=== PATIENT | female | born 1955 | race Caucasian/White ===

== ENCOUNTER 2021-01-20 10:11 | Outpatient (REF) | payer OTHER, SELFPAY ==
--- NOTE | ~2021-01-20 | MM_ITS ---
EXAMINATION: MM SCREENING DIGITAL BREAST TOMOSYNTHESIS, BILATERAL CLINICAL INFORMATION: Screening. Asymptomatic. The lifetime risk of breast cancer based on the Tyrer-Cuzick Model is 5.4%. COMPARISON: Mammography: December 12, 2018 and studies dating back to 04/12/2011. TECHNIQUE: Digital breast tomosynthesis is performed in both the craniocaudal and mediolateral oblique views along with computer-aided detection (CAD). Synthesized 2D images are generated from the tomosynthesis. FINDINGS: The breasts are heterogeneously dense, which may obscure small masses (ACR BI-RADS breast composition Category c). There is a stable parenchymal pattern seen within the left breast with no new abnormal dominant masses or new suspicious grouping of microcalcifications. Within the anterior superior aspect of the right breast the grouping of calcifications has increased in number and there is question of an underlying ill-defined density on craniocaudal view. Recommend spot magnification view of the calcifications. MM/MM tomosynthesis screening BI IMPRESSION: Right breast calcifications for further evaluation as described. ASSESSMENT: BI-RADS 0: Incomplete - Need Additional Imaging Evaluation. RECOMMENDATION: 1. Additional views of the right breast. 2. Targeted ultrasound if warranted after review of the additional views. 3. Radiology department staff will contact the patient for additional imaging. This patient's information was entered into a reminder system with a target due date for their next mammogram.
== END 2021-01-20 10:12 | disposition home or self-care (01) ==
LOC: HO.MAMMO 10:11
PROVIDERS: Visit Provider Internal Medicine
DX: Z12.31 Encounter for screening mammogram for malignant neoplasm of breast (principal)
CPT/HCPCS: 77063; 77067

== ENCOUNTER 2021-02-02 09:48 | Outpatient (REF) | payer OTHER, SELFPAY ==
--- NOTE | ~2021-02-02 | MM_ITS ---
EXAMINATION: MM DIAGNOSTIC DIGITAL MAMMOGRAPHY, RIGHT CLINICAL INFORMATION: Recall from screening for increased calcifications anterior upper right breast. COMPARISON: Mammography: 01/20/2021, 12/12/2018 TECHNIQUE: Digital mammography is performed in the following views: Magnification CC, magnification ML FINDINGS: There are scattered areas of fibroglandular density (ACR BI-RADS breast composition Category b). There are multiple fine calcifications anterior 12:30 o'clock position. These slightly vary in size and attenuation and represent change from prior mammography 2018. Stereotactic sampling is recommended. Results are discussed with the patient at time of visit. Stereotactic sampling is recommended. MM/MM added views RT IMPRESSION: Suspicious calcifications anterior 12:30 o'clock position right breast. ASSESSMENT: BI-RADS 4: Suspicious RECOMMENDATION: Stereotactic sampling right breast calcifications.
== END 2021-02-02 09:49 | disposition home or self-care (01) ==
LOC: HO.MAMMO 09:48
PROVIDERS: PCP Internal Medicine; Visit Provider Internal Medicine
DX: R92.1 Mammographic calcification found on diagnostic imaging of breast (principal)
CPT/HCPCS: 77065

== ENCOUNTER → 2021-02-16 08:22 | Outpatient (BNVA) | payer OTHER, SELFPAY | PROVIDERS: PCP Internal Medicine; Visit Provider Surgery | DX: R92.8 Other abnormal and inconclusive findings on diagnostic imaging of breast (principal) | CPT/HCPCS: 99202 ==

== ENCOUNTER 2021-02-18 07:43 | Outpatient (REF) | payer OTHER, SELFPAY ==
--- NOTE | ~2021-02-18 | MM_ITS ---
EXAMINATION: STEREOTACTIC TOMOSYNTHESIS-GUIDED VACUUM-ASSISTED BREAST BIOPSY, RIGHT SPECIMEN RADIOGRAPH, RIGHT POST PROCEDURE DIGITAL MAMMOGRAM, RIGHT CLINICAL INFORMATION: Indeterminate grouping of calcifications superior right breast. COMPARISON: February 02, 2021 and studies dating back to September 25, 2016. TECHNIQUE/PROCEDURE: Informed consent was obtained from the patient after discussion of the benefits, risks, and alternatives to biopsy today. Patient appeared to understand. Gave opportunity for questions. Patient signed consent form. BIOPSY TABLE: [employer] Affirm Prone Biopsy System. LESION: Calcifications. LOCAL ANESTHESIA: 10 mL 1% lidocaine; 10 mL 1% lidocaine with epinephrine. DERMATOTOMY: Single skin beck dermatotomy performed. NEEDLE: [employer] Eviva 9-gauge vacuum assisted core biopsy device. APPROACH: Superior, craniocaudal. TARGETING: Digital breast tomosynthesis used for targeting. CORES: 15. CLIP: T shaped. SPECIMEN RADIOGRAPH: Specimen radiograph is taken in separate room using digital mammography. The index calcifications are in the excised cores. POST PROCEDURE UNILATERAL DIGITAL MAMMOGRAM: The post biopsy mammogram is performed in separate room using separate digital mammography equipment from the biopsy procedure. Craniocaudal and 90 degree mediolateral views are obtained. There are scattered areas of fibroglandular density (breast composition category: b). The clip marker is in position. The calcifications are markedly decreased at the biopsy site. Within the sample is also noted be calcified arterial wall. There is a moderately sized hematoma present at the biopsy site. Hemostasis was obtained with manual compression. The patient tolerated the procedure well. No immediate complications. Home instructions reviewed with the patient. Final pathology results are pending. MM/MM stereotactic biopsy RT IMPRESSION: 1. Digital tomosynthesis-guided core biopsy right breast with clip placement. 2. Specimen radiograph taken and post procedure mammogram. There is satisfactory positioning of the biopsy clip. 3. Final pathology results pending. An addendum report will be issued.
== END 2021-02-18 07:44 | disposition home or self-care (01) ==
LOC: HO.MAMMO 07:43
PROVIDERS: Visit Provider Surgery
DX: C50.911 Malignant neoplasm of unspecified site of right female breast (principal); Z17.0 Estrogen receptor positive status [ER+]
CPT/HCPCS: 19081; 88305; 88341; 88342; 88360

== ENCOUNTER → 2021-02-23 09:39 | Outpatient (BNVA) | payer OTHER, SELFPAY | PROVIDERS: PCP Internal Medicine; Visit Provider Surgery ==

== ENCOUNTER → 2021-03-04 14:55 | Outpatient (BNVA) | payer OTHER, SELFPAY | PROVIDERS: PCP Internal Medicine; Visit Provider Surgery ==

== ENCOUNTER → 2021-03-09 08:56 | Outpatient (BNVA) | payer OTHER, SELFPAY | PROVIDERS: PCP Internal Medicine; Visit Provider Surgery | DX: C50.911 Malignant neoplasm of unspecified site of right female breast (principal); Z17.0 Estrogen receptor positive status [ER+] | CPT/HCPCS: 99212 ==

== ENCOUNTER → 2021-03-18 09:02 | Outpatient (BNV) | payer MEDICARE, OTHER, SELFPAY | PROVIDERS: PCP Internal Medicine; Referring Provider Surgery; Visit Provider Internal Medicine Medical Oncology | DX: Z85.3 Personal history of malignant neoplasm of breast (principal); Z90.13 Acquired absence of bilateral breasts and nipples; Z17.0 Estrogen receptor positive status [ER+]; M81.0 Age-related osteoporosis without current pathological fracture | CPT/HCPCS: 99204; 99213; 99214 ==

== ENCOUNTER → 2021-03-19 14:00 | Outpatient (BNVA) | payer OTHER, SELFPAY | PROVIDERS: PCP Internal Medicine; Visit Provider Urology | DX: Z13.89 Encounter for screening for other disorder (principal) | CPT/HCPCS: 99212 ==

== ENCOUNTER 2021-03-24 07:08 | Day surgery (SDC) | payer OTHER, SELFPAY ==
[2021-03-17 10:19] VITALS: BMI 24.9
--- NOTE | 2021-03-20 08:21 | P.CONAN_ITS ---
Documented by User: Zee Hodgeney 03/20/21 08:23 HPI - Anesthesia Eval Consult details Narrative: 65yo F for Right Axillary Sentinal Node Biopsy, Bilateral Mastectomy Simple PMFSH Active Problems Active Problems: All Active Problems (Updated 03/19/21 @ 14:57 by Shekhar Sne MD) Nephrolithiasis (Acute) Breast cancer, right (Acute) Breast cancer (Acute) Abnormal mammogram of right breast (Acute) Right elbow pain (Acute) Renal calculi (Acute) Polyarthralgia (Acute) GERD (gastroesophageal reflux disease) (Acute) Past Medical History Medical History Abnormal mammogram of right breast Arthritis of both knees Breast cancer COVID-19 vaccine administered GERD (gastroesophageal reflux disease) Polyarthralgia Renal calculi Right elbow pain Family History Family History Father No problems noted. Mother Diabetes Hypertension Surgical History Surgical History H/O skin graft H/O tubal ligation History of cholecystectomy Hx of colonoscopy Social History Social History Are you a primary hospice spiritual care coordinator to a significant other at home: No Do you presently have visiting nurse or other home services: No Alcohol intake: former Patient Tobacco Use Status: Never used Tobacco Use of substances other than those prescribed or required for medical reasons: No Have you been hit, kicked, punched, or otherwise hurt by someone within the past year? If so, by whom?: No Are you DNR?: No Advance Directives: No Advance Directives Information Provided: No Advance Directives on File: No Recently lost weight without trying: No Eating poorly because of decreased appetite: No Nutrition Risks: No Nutritional Risk Patient : No Meds Allergies Allergy/AdvReac Type Severity Reaction Status Date / Time No Known Allergies Allergy Verified 03/19/21 14:29 Home Medications Medication Instructions Recorded Confirmed Last Taken Type omeprazole 40 mg capsule,delayed 40 mg PO DAILY 01/15/21 03/18/21 Unknown History release multivitamin 1 tab PO DAILY 03/18/21 03/18/21 Unknown History Exam Exam Date and Time: March 20, 202121 Height,Weight and Vital Signs: Height 5 ft 1 in Weight 59.874 kg Pertinent Lab Results Pertinent Lab Results: Laboratory Tests 03/18/21 03/18/21 09:41 09:41 WBC 5.0 Hgb 12.7 Hct 38.3 Plt Count 172 Sodium 141 Potassium 4.2 Chloride 104 Carbon Dioxide 30 H BUN 9 Creatinine 0.70 Assessment and Plan Assessment Anesthesia Assessment: Chart Reviewed Documented by User: Gemma Lemus 03/24/21 10:10 [facility] Past Medical History Medical History Abnormal mammogram of right breast Arthritis of both knees Breast cancer COVID-19 vaccine administered GERD (gastroesophageal reflux disease) Polyarthralgia Renal calculi Right elbow pain Family History Family History Father No problems noted. Mother Diabetes Hypertension Surgical History Surgical History H/O skin graft H/O tubal ligation History of cholecystectomy Hx of colonoscopy Social History Social History Are you a primary hospice spiritual care coordinator to a significant other at home: No Do you presently have visiting nurse or other home services: No Alcohol intake: former Patient Tobacco Use Status: Never used Tobacco Use of substances other than those prescribed or required for medical reasons: No Have you been hit, kicked, punched, or otherwise hurt by someone within the past year? If so, by whom?: No Are you DNR?: No Advance Directives: No Advance Directives Information Provided: No Advance Directives on File: No Recently lost weight without trying: No Eating poorly because of decreased appetite: No Nutrition Risks: No Nutritional Risk Patient : No Meds Allergies Allergy/AdvReac Type Severity Reaction Status Date / Time No Known Allergies Allergy Verified 03/19/21 14:29 Home Medications Medication Instructions Recorded Confirmed Last Taken Type omeprazole 40 mg capsule,delayed 40 mg PO DAILY 01/15/21 03/18/21 Unknown History release multivitamin 1 tab PO DAILY 03/18/21 03/18/21 Unknown History Exam Airway Mallampati Class: II TM Dist: >3cm Neck ROM: Full Assessment and Plan Assessment Anesthesia Assessment: Anesthesia Plan Discussed and Chart Reviewed Final Anesthetic Review NPO: Yes ASA Class: II Final Preanesthetic Review: No Changes in Pt Med Stat, Meds/Allgs Chart Reviewed, Consent Obtained/Reviewed and Anes Risks/Benef Reviewed Patient Risk: Low Procedure Risk: Low Assessment/Block/Sedation in SS: Assess/Block/Sedation-SS Anesthetic Plan Anesthetic Plan: GA Disposition: Standard PACU
[2021-03-24] VITALS (12 sets, daily range): BP systolic 134–161; BP diastolic 52–70; PULSE 63–102; RESP 8–18; TEMP 36.2–36.9; O2SAT 94–100
--- NOTE | ~2021-03-24 | NM_ITS ---
PROCEDURE: NM LYMPH SCINTIGRAPHY CLINICAL INFORMATION: Right breast lesion. For mastectomy. COMPARISON: None TECHNIQUE: Following explaining right breast lymphoscintigraphy procedure, benefits and risk, a written consent was obtained. The right breast areola was initially numbed with 2% lidocaine jelly. This was cleaned approximately 45 minutes after application in a sterile fashion. 0.5 uCi of 99m technetium Lymphoseek divided in 4 equal doses injected in 4 quadrants around the areola. Complete hemostasis achieved. Simple massage was performed by the patient and the nuclear tech. Images were obtained approximately 20 minutes later. Patient tolerated the procedure extremely well. FINDINGS: There are areas of 4 corner isotope activity around the right breast areola. There is a solitary sentinel node in the right anterior axilla. No activity seen along the internal mammary chain. NM/NM sentinel node w imaging IMPRESSION: Solitary sentinel node seen in the right anterior axilla on right breast lymphoscintigraphy.
[2021-03-24 07:32] LABS: COVID-19 Test Negative (Negative); IDNOW Serial# 9DD0AD1C
[2021-03-24] MEDS: Lactated Ringers 1,000 ML 100 ML IVCONT (08:03)
--- NOTE | 2021-03-24 10:37 | MHC.SHP ---
Pre-Procedural Eval Section B Chief Complaint: s/p b/l mastectomy Allergies: Allergies Allergy/AdvReac Type Severity Reaction Status Date / Time No Known Allergies Allergy Verified 03/19/21 14:29 Plan I have reviewed the history and physical and performed a pertinent physical examination on my patient. No changes have occurred unless specified.
--- NOTE | 2021-03-24 14:03 | PM.OP ---
Brief Operative Note Date of Service: 03/24/21 Pre-op diagnosis: right breast cancer Post-op diagnosis: same Procedure: bilateral total mastectomy with sentinel node biopsy of the right axilla Surgeon: Ronny Kimble MD Anesthesia: GLMA Was an Contact Centre Supervisor used for this Procedure?: Yes Contact Centre Supervisor: Agustin Patricio Estimated blood loss (mL): 75 Pathology: other (left and right breasts, sentinel node) Condition: stable Disposition: PACU
--- NOTE | 2021-03-24 14:05 | P.OP_ITS ---
Operative Note Operative Note Date of Service: 03/24/21 Narrative: Preop diagnosis: Invasive ductal carcinoma right breast Postop diagnosis: The same Procedure: Bilateral total mastectomy with sentinel node biopsy of the right breast Surgeon: Ronny Kimble MD 1st clinical trial assistant: Agustin Patricio MD The patient is a 65 year female with undergone ultrasound biopsy of right breast mass for calcifications noted on screening mammogram. This turned out to be invasive ductal carcinoma. I therefore explained to her the options for treatment. I discussed with her breast conservation treatment, with sentinel node biopsy of the right breast. She understood the option of total mastectomy with sentinel node biopsy as well. She actually wanted to proceed with bilateral total mastectomy with sentinel node biopsy of the right breast. She had stated that she was very anxious about the risk of breast cancer on the contralateral breast in the future. She did see the medical oncologist who also recommended lumpectomy with sentinel node biopsy the involved breast. She said she understood her options well but wanted bilateral mastectomy with sentinel node biopsy. She had stated that she had discussed this multiple times with her was in agreement. She also understood the option of immediate breast reconstruction but was not interested in this. She was brought to the operating room placed supine the table under general anesthesia via laryngeal mask airway. Both breasts were prepped and drap co ed in the usual sterile fashion. The patient earlier had undergone sentinel node mapping . I reviewed the images and there appeared to be 1 sentinel node in the right axilla. I had marked my planned lines of incision on both breasts. I made a standard elliptical incision around the breast including the nipple-areolar complex as well as the biopsy site on the right side. This was made using blade 10. This carried down to full-thickness of the skin and part of subcutaneous layer. I lifted the skin superiorly and used electrocautery to plane of dissection betwee n the subcutaneous layer and the breast tissue. I proceeded to define this flap initially at the superior and medial margins. I proceeded to continue to develop this flap going more laterally and used the Edgar skin clamps to pull up the skin flap as we developed the plane to separate the flap from the breast tissue. I developed this superior flap all the way to the clavicle as are superior margins. I also went all the way to the sternum medially. I developed this flap as well inferiorly in the same fashion using the clamps on the skin and subdermal layer inferiorly all the way to the inframammary fold as our inferior limits of our flap. I proceeded to continue to dissect all around the breast tissue, making sure that we were not too thin on the flaps more thick with residual breast tissue. I continued to divide the breast tissue the subcutaneous layer and continue with the dissection of the flaps to the the lateral limits which was the edge of the pectoralis major. I proceeded to develop the inferior flap and connected this laterally towards the pectoralis edge. I then proceeded to incise the fascia of of the pectoralis starting at the sternum. I then developed a plane of dissection between the pectoralis fascia the muscle itself using electrocautery. We continued with dissection from medial to lateral. We continued to divide the pectoralis fascia towards the clavicle superiorly and the inframammary fold inferiorly. We developed a plane of dissection to lift the pectoralis fascia off of the muscle fibers and continued this until we reached the lateral edge of our dissection which was the pectorals major. I the breast tissue as well as the pectoralis fascia at this level on the lateral aspect. I continued to divide the lateral-most breast tissue at the tail until we were able to connect with the inferior dissection of the breast tissue. The entire resected breast tissue was sent as specimen. I then proceeded to identify our sentinel nodes. We used the gamma probe to identify elevated counts in the axilla. I continued to use this probe until I wasable to identify asentinel node after blunt dissection with the Adson's clamp. I gently dissected this sentinel node with Metzenbaum scissors . This had a count of about 361 on the gamma probe.This was sent as a specimen. Examination of the axilla with the gamma pro showed another elevated count of about 88 almost adjacent to where we had removed the 1st sentinel node. This was excised as well in the same fashion using electrocautery and this was sent as our 2nd sentinel node. There were no other background elevated counts with examination of the axilla with the probe. I proceeded to copiously irrigate the mastectomy site as well as the axilla. I observed for hemostasis. I made sure that there were no bleeding perforating vessel nor any oozing areas. I positioned a drain under the superior and inferior flaps. This IRASEMA #7 drain was brought out through a stab wound in the inferior flap laterally. This was secured with nylon 2-0 stitch to the skin. I reapposed the subdermal layer of the mastectomy incision with multiple interrupted Dexon 3-0 sutures. I closed the skin incision with a running Dexon 4-0 subcuticular stitch. I then applied a blue towel to cover this surgical site and proceeded to work on the contralateral breast. I then proceeded to the total mastectomy on the left. I made a standard elliptical incision around the nipple-areolar area using a blade number 10. This was carried down through the full-thickness of the skin with electrocau marcia. We then developed the flaps superiorly by lifting up the skin and subdermal layer with the skin clamps. I proceeded to divide and separate the breast tissue away from the subcutaneous layer of the flaps all the way to the clavicle as our superior margin. I then developed the inferior flap in the same manner to the inferior-most margin which was the infra mammary fold. I then proceeded to incise the pectoralis fascia at the sternum and proceeded to lift the fascia off of the muscle using electrocautery. We proceeded to develop this plane of dissection between the pectoralis muscle and the fascia itself using electrocautery. I continue to separate this fascia off of the muscle layer, dividing the pectoralis fascia superiorly at the level of the clavicle and inferiorly at the inframammary fold. I continued to separate this all the way to the tail of the breast until was able to visualize the lateral edge of the pectoralis muscle. This was our lateral-most border of the dissection. I divided the of the subcutaneous tissue at this area and connected our incision of the breast tissue and the pectoralis fascia muscle following along the edge of the pectoralis until we were able to completely deliver the entire breast. This was sent as specimen. I copies irrigated irrigated. I suctioned out the irrigant fluid and made sure that we had good hemostasis. Once hemostasis was ensured I proceeded to then position IRASEMA 7 drain on both inferior and superior flaps and this was brought out through a small stab incision in the inferior flap laterally. I then reapposed the subdermal layer with Dexon 3-0 interrupted sutures. Skin closure was achieved with Dexon 4-0 subcuticular running stitch. I had secured the IRASEMA drain nylon 3-0 stitch to the skin. I infiltrated both areas of incision with Marcaine 0.5% for postop analgesia. Steri-Strips and dressings were applied. We also applied mastectomy a binder. The procedure with then completed. The patient tolerated the procedure well. There were no complications noted. Initial and final counts of sponges and instruments were correct. Estimated blood loss was about 75 cc . The patient was extubated without difficulty and transferred to the recovery room with stable by signs.
--- NOTE | 2021-03-24 16:55 | P.EN_ITS ---
Event Note Date of Service: 03/24/21 Event Note: Seen postop - underwent bilateral total mastectomy with sentinel n ode biopsy of the right axilla earlier today Seems to have good pain control Dressings dry Both IRASEMA is with scanty dark serosanguineous output I have explained to her the procedure Have updated her Pain management Doing well postop
[2021-03-24] MEDS: Lactated Ringers 1,000 ML 60 ML IVCONT (17:30)
[2021-03-24] MEDS: 0.9 % Sodium Chloride Flush 3 ML SYRINGE IVFLUSH ×2 (17:30→22:19)
[2021-03-24] MEDS: Gabapentin 100 MG CAPSULE PO (22:10)
[2021-03-24] MEDS: ondansetron HCL 4 MG/2 ML VIAL IVPUSH (22:19)
[2021-03-25] VITALS: BP 109/49; PULSE 83; RESP 16; TEMP 36.8; O2SAT 99
[2021-03-25 04:48] VITALS: BP 119/51; PULSE 73; RESP 16; TEMP 36.9; O2SAT 97
[2021-03-25 05:55] LABS: Hematocrit 33.3 % (37-47); Hemoglobin 10.8 g/dl (12.0-16.0); Mean Corpuscular HGB Conc 32.4 g/dl (31.0-35.0); Mean Corpuscular Hemoglobin 28.2 pg (27.0-33.0); Mean Corpuscular Volume 86.9 fL (80-98); Mean Platelet Volume 10.7 fL (9.4-12.3); Platelet Count 219 X10*3/uL (160-400); Red Blood Count 3.83 X10*6/uL (4.20-5.50); Red Cell Distribution Width 12.5 % (11.0-16.0); White Blood Count 10.8 X10*3/uL (4.8-10.8)
[2021-03-25 06:21] LABS: Anion Gap 11 (12-20); Blood Urea Nitrogen 15 mg/dL (9-16); Calcium 8.8 mg/dL (8.4-10.2); Carbon Dioxide 27 mmol/L (22-29); Chloride 107 mmol/L (96-108); Creatinine Clr Calc Pharmacy 63.8; Estimated Glomerular Filt Rate > 60; Glucose Random 99 mg/dL (60-115); Potassium 4.6 mmol/L (3.3-5.1); Sodium 140 mmol/L (135-145)
[2021-03-25 07:17] VITALS: BP 102/54; PULSE 71; RESP 18; TEMP 36.7; O2SAT 97
[2021-03-25] MEDS: Omeprazole 40 MG CAPSULE.DR PO (08:56)
[2021-03-25] MEDS: oxyCODONE HCl Immed Release 5 MG TABLET PO (08:56)
--- NOTE | 2021-03-25 09:13 | P.PNGS_ITS ---
Subjective Subjective Date of Service: 03/25/21 Interval history: says she had a good night good pain control no events reported Physical Exam Vital Signs: Vital Signs: Last Vital Signs Temp 98.0 F 03/25/21 07:17 Pulse 71 03/25/21 07:17 Resp 18 03/25/21 07:17 BP 102/54 L 03/25/21 07:17 Pulse Ox 97 03/25/21 07:17 Body Mass Index 24.9 Laboratory Results - last 24 hr 03/25/21 03/25/21 05:42 05:42 WBC 10.8 RBC 3.83 L Hgb 10.8 L Hct 33.3 L MCV 86.9 MCH 28.2 MCHC 32.4 RDW 12.5 Plt Count 219 D MPV 10.7 Absolute Nucleated RBC 0.000 Nucleated RBC % (a uto) 0.0 Sodium 140 Potassium 4.6 Chloride 107 Carbon Dioxide 27 Anion Gap 11 L BUN 15 D Creatinine 0.75 Estim Creat Clear Calc 63.8 Estimated GFR > 60 Random Glucose 99 Calcium 8.8 Const: General: comfortable and no acute distress Chest: Other: dressings dry, IRASEMA output dark old blood, scanty Resp: Effort & Inspection: normal respiratory effort Cardio: Rhythm: regular rhythm Progress Note: A&P Assessment and plan (1) Breast cancer, right: Status: Acute Assessment and Plan: S/P bilateral total mastectomy, SNL bx, right doing well appears to have good pain control seems ok to dc home with VNS for IRASEMA care, dressings ffup with me next week to remove drains dw rn case mgr Fall Risk Details Current Medications: Current Medications Generic Name Dose Route Start Last Admin Trade Name Derrick PRN Reason Stop Dose Admin Gabapentin 100 mg 03/24/21 21:00 03/24/21 22:10 Gabapentin 100 Mg Capsule PO 100 mg BEDTIME CADEN Administration Lactated Ringer's 1,000 mls @ 60 mls/hr 03/24/21 05:45 03/25/21 08:59 Lr IVCONT Not Given .[id number] CADEN Acetaminophen 1,000 mg in 100 mls @ 400 mls/hr 03/24/21 16:48 03/25/21 06:11 Ofirmev IV 03/25/21 11:02 Infused Q6H CADEN Infusion Morphine Sulfate 2 mg 03/24/21 13:57 Morphine Sulfate 2 Mg/Ml Cartridge IVPUSH Q3H PRN Pain, Moderate (Pain Scale 4-6 Morphine Sulfate 3 mg 03/24/21 16:48 Morphine Sulfate 2 Mg/Ml Cartridge IVPUSH Q3H PRN Pain, Severe (Pain Scale 7-10) Omeprazole 40 mg 03/25/21 09:00 03/25/21 08:56 Omeprazole 40 Mg Capsule.Dr PO 40 mg DAILY CADEN Administration Ondansetron HCl 4 mg 03/24/21 13:59 03/24/21 22:19 Ondansetron Hcl 4 Mg/2 Ml Vial IVPUSH 4 mg Q8H PRN Administration Nausea Oxycodone HCl 5 mg 03/24/21 16:58 03/25/21 08:56 Oxycodone Hcl Immed Release 5 Mg Tablet PO 5 mg Q4H PRN Administration Pain, Mild (Pain Scale 1-3) Sodium Chloride 3 ml 03/24/21 16:00 03/25/21 07:35 0.9 % Sodium Chloride Flush 3 Ml Syringe IVFLUSH Not Given [facility]SHIFT [facility] Time Spent With Patient Time: Total time spent is greater than 50% in coordination of care (as documented) at patient's floor/unit and/or counseling patient: Time with patient: 15 - 24 minutes Procedures Date of Service Date of Service: 03/25/21
--- NOTE | 2021-03-25 10:13 | MHC.CM.PN ---
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 SHE HAS NO VNA NO DME SERVICES IN THE HOME DISCHARGE PLAN HOME WITH FAMILY , WITH NEW REFERRAL TO THE [facility] FOR NURSING FOR S/P ASSESSMENT AND J-P DRAIN MONITORING TRANSP-FAMILY PCP DR JOHNNY SUN SURGEON DR TORRES EDUCATED ABOUT THE IMPORTANCE OF HAVING A HEALTH CARE PROXY
--- NOTE | 2021-03-25 11:42 | HO.POSTANES ---
Post Anesthesia Evaluation Post Anesthesia Evaluation Vital Signs: Vital Signs Temp Pulse Resp BP Pulse Ox 03/25/21 07:17 98.0 F 71 18 102/54 L 97 03/25/21 04:48 98.4 F 73 16 119/51 L 97 03/25/21 00:00 98.3 F 83 16 109/49 L 99 Anesthesia: General Mental Status: Awake Pain Control: Satisfactory Nausea/Vomiting: None Hydration: Adequate Anesthesia-Related Issues: No Anes. Related Issues
--- NOTE | 2021-03-25 14:49 | MHC.CM.PN ---
nurse health care sanitary technician note discharge plan home today with referral to the [facility] for nrusing for s/p surgical assessment , pain assessment and cARE AND MONITORING J-P DRAIN PCP PATIENT TO CALL FOR APPOINTMENT TRANSPORTATION FAMILY
--- NOTE | 2021-03-26 13:02 | P.DS_ITS ---
DS: Providers Provider Date of Service: 03/25/21 Primary care physician: Sarai Meyers MD DS: Diagnosis Discharge Diagnosis (1) Breast cancer, right: Status: Acute Problem details: The patient is a 65-year-old female with invasive ductal carcinoma of the right breast who underwent bilateral total mastectomy with node biopsy of the right axilla on 03/24/2021. She tolerated procedure well. She drains in place both the left and right mastectomy sites. She was admitted for extended stay postoperatively. She was morphine, Ofirmev and oxycodone for pain. She had good pain control overnight postop. She continued to do well on postop day 1. Her IRASEMA drain had minimal dark old blood as output. She was therefore discharged on postop day 1. On 03/24/2021. She had instructions to see me in the office for a wound check and for removal of her IRASEMA drains. A visiting nurse was also arranged to do IRASEMA care as well as wound care. DS: Medications Discharge Medications Home Medications: Home Medications Medication Instructions Recorded Confirmed omeprazole 40 mg capsule,delayed 40 mg PO DAILY 01/15/21 03/18/21 release multivitamin 1 tab PO DAILY 03/18/21 03/18/21 Previous Rx's Medication Instructions Recorded gabapentin 100 mg capsule 100 mg PO BEDTIME 90 Days #90 cap 01/15/21 pyridoxine (vitamin B6) 100 mg 100 mg PO DAILY 90 Days #90 tab 03/19/21 tablet ibuprofen 600 mg PO Q6H PRN #30 tab 03/25/21 omeprazole magnesium [Prilosec OTC] 20 mg PO DAILY #30 tab 03/25/21 oxycodone-acetaminophen [Percocet] 1 - 2 tab PO Q4-6H PRN #30 tab 03/25/21 DS: Summary Time Spent with Patient Time attestation: Total time spent providing and/or coordinating discharge services: Discharge coordination time: Greater than 30 minutes Quality: Stroke Does the patient have a stroke diagnosis?: No Physical Exam Vital Signs: Vital Signs: Last Vital Signs Temp 98.0 F 03/25/21 07:17 Pulse 71 03/25/21 07:17 Resp 18 03/25/21 07:17 BP 102/54 L 03/25/21 07:17 Pulse Ox 97 03/25/21 07:17 Body Mass Index 24.9 Const: General: comfortable and no acute distress Orientation/con sciousness: patient oriented x3 Neck: Neck: Yes no lymphadenopathy Chest: Other: Mastectomy sites with clean, dry dressings, IRASEMA drains with minimal output Resp: Auscultation: clear to auscultation bilaterally Cardio: Rhythm: regular rhythm GI: Palpation (GI): Soft to palpation, nontender and no guarding Neuro: General: patient oriented x3 DS: Data Data Completed and Pending Pending studies at discharge: Pending at discharge 03/24/21 12:19 Surgical [PTH] Routine Discharge Plan Discharge Patient Disposition: Home Health Service Referrals: Yovani DORAN [Outside] - 1 Day (e referral to the widener visiting nurse for post surgery assessment and reinforcement of teaching for j-p drain and moniotring, sign symptom management (when to call, for what to call and who to marce) Ronny Kimble MD [Physician] - 1 Week Sarai Altamirano MD [Primary Care Provider] - 1 Week Discharge Medications: New oxycodone-acetaminophen [Percocet] 5-325 mg tablet 1 - 2 tab PO Q4-6H PRN (Reason: pain) Qty: 30 RF: 0 ibuprofen 600 mg tablet 600 mg PO Q6H PRN (Reason: pain) Qty: 30 RF: 0 omeprazole magnesium [Prilosec OTC] 20 mg tablet,delayed release (DR/EC) 20 mg PO DAILY Qty: 30 RF: 0 Continued multivitamin Tablet 1 tab PO DAILY RF: 0 omeprazole 40 mg capsule,delayed release(DR/EC) 40 mg PO DAILY RF: 0 gabapentin 100 mg capsule 100 mg PO BEDTIME 90 Days Qty: 90 RF: 1 pyridoxine (vitamin B6) 100 mg tablet 100 mg PO DAILY 90 Days Qty: 90 RF: 1 Discharge Orders: Discharge Order (Routine); Ordered 03/25/21 Ordered By: Ronny Kimble Activity Restrictions/Additional Instructions: If the incision area is tender, you may apply an ice pack for short intervals (No more than 20 minutes on, followed by at least 20 minutes off). Do not apply heat. Do not use creams, lotions, or topical antibiotics unless instructed to do so by your surgeon. These can cause infection or allergic reaction. OK to shower No lifting more than 15 lb Empty IRASEMA drain and record output twice a day No strenuous activities Call the office for follow-up next week - with Dr. Kimble Call Your Doctor If: -Your temperature exceeds 101.5? F -You experience excessive pain or swelling -You have an unexpected reaction to medication -You have excessive bleeding -You experience continued vomiting/nausea -Your incision begins to separate -Your incision shows signs of infection such as increased redness, swelling, excessive pain, drainage (light blood or clear fluid is normal) or heat Print Language: Azerbaijani Discharge Date/Time: 03/25/21 16:16
== END 2021-03-25 16:16 | disposition home health service (06) ==
LOC: HO.S3 15:33 → HO.SSS 03-25 09:26 → HO.S3 03-25 09:26
PROVIDERS: PCP Internal Medicine; Visit Provider Surgery
PROC: (CPT 19307; principal; 2021-03-24 10:50)
PROC: (CPT 19303; 2021-03-24 10:50)
DX: C50.911 Malignant neoplasm of unspecified site of right female breast (principal); Z17.0 Estrogen receptor positive status [ER+]
CPT/HCPCS: 19307; 36415; 78195; 80048; 85027; 87635; 88307; 88342; 99024; A9520; J0131; J0690; J1100; J1170; J1885; J2250; J2405; J3010

== ENCOUNTER → 2021-03-30 11:14 | Outpatient (BNVA) | payer OTHER, SELFPAY | PROVIDERS: PCP Internal Medicine; Referring Provider Internal Medicine; Visit Provider Surgery ==

== ENCOUNTER → 2021-04-06 10:47 | Outpatient (BNVA) | payer OTHER, SELFPAY | PROVIDERS: PCP Internal Medicine; Visit Provider Surgery | DX: C50.911 Malignant neoplasm of unspecified site of right female breast (principal) | CPT/HCPCS: 99212 ==

== ENCOUNTER → 2021-05-06 13:24 | Outpatient (BNVA) | payer OTHER, SELFPAY | PROVIDERS: PCP Internal Medicine; Referring Provider Internal Medicine; Visit Provider Surgery | DX: Z90.13 Acquired absence of bilateral breasts and nipples (principal); Z85.3 Personal history of malignant neoplasm of breast | CPT/HCPCS: 99212 ==

== ENCOUNTER 2021-05-14 10:55 | Outpatient (REF) | payer OTHER, SELFPAY ==
--- NOTE | ~2021-05-14 | MM_ITS ---
EXAMINATION: BONE DENSITOMETRY CLINICAL INDICATION: Age-related osteoporosis without current pathological fracture. History of breast cancer. Screening for osteoporosis. COMPARISON: None (current study represents initial baseline exam). TECHNIQUE: Using a [employer] DXA System (software version: 13.1) manufactured by [employer], dual-energy x-ray absorptiometry was performed of the lumbar spine and left hip. The images are of good technical quality. Summary results are attached. FINDINGS: AP SPINE L1-L4: BMD 0.896 g/cm2, Z-score -0.7, T-score -2.4, osteopenia. LEFT FEMUR, NECK: BMD 0.682 g/cm2, Z-score -1.0, T-score -2.6, osteoporosis. LEFT FEMUR, TOTAL: BMD 0.697 g/cm2, Z-score -1.2, T-score -2.5, osteoporosis. IDENTIFIED RISK FACTORS: Anticonvulsant. Low calcium intake. Menopause. Recurrent falls. HISTORY OF FRACTURE: None listed. MEDICATIONS: None listed. MM/XR DEXA axial skeleton IMPRESSION: 1. DIAGNOSIS: Osteoporosis based on the lowest T-score value of -2.6 in the femoral neck applying World Health Organization criteria. 2. 10-YEAR FRACTURE RISK PREDICTION, FRAX: Major osteoporotic fracture (clinical spine, forearm, hip or shoulder) 7.3%. Hip fracture 1.6%. 3. Treatment Recommendations: NOF guidelines recommend consideration for treatment in postmenopausal women and men age 50 and older presenting with the following: -A hip or vertebral (clinical or morphometric) fracture. -T-score less than or equal to -2.5 at the femoral neck or spine after appropriate evaluation to exclude secondary causes. -Low bone mass at the hip or spine and a 10-year fracture probability by FRAX of greater than or equal to 3% for hip fracture or greater than or equal to 20% for major osteoporotic fracture based on the [place] adapted WHO algorithm. 4. Other Recommendations: All treatment decisions require clinical judgment and consideration of individual patient factors, including patient preferences, comorbidities, previous drug use, risk factors not captured in the FRAX model (e.g. frailty, falls, vitamin D deficiency, increased bone turnover, interval significant decline in bone density) and possible under or overestimation of fracture risk by FRAX. Additional medical evaluation for secondary cause of low bone mineral density may be appropriate. FUTURE SCAN RECOMMENDATION: People with diagnosed cases of osteoporosis or at high risk for fracture should have regular bone mineral density tests. For patients eligible for Medicare, routine testing is allowed once every 2 years. The testing frequency can be increased to one year for patients who have rapidly progressing disease, those who are receiving or discontinuing medical therapy to restore bone mass, or have additional risk factors.
== END 2021-05-14 10:56 | disposition home or self-care (01) ==
LOC: HO.MAMMO 10:55
PROVIDERS: Visit Provider Internal Medicine Medical Oncology
DX: Z13.820 Encounter for screening for osteoporosis (principal); M85.80 Other specified disorders of bone density and structure, unspecified site; Z78.0 Asymptomatic menopausal state; Z79.899 Other long term (current) drug therapy
CPT/HCPCS: 77080

== ENCOUNTER 2021-08-03 08:46 | Outpatient (REF) | payer OTHER, SELFPAY ==
--- NOTE | ~2021-08-03 | US_ITS ---
EXAMINATION: US RETROPERITONEAL LIMITED (RENAL ONLY) CLINICAL INFORMATION: Kidney stone. COMPARISON: Previous renal ultrasound most recent June 2020 TECHNIQUE: Grayscale and color imaging of the kidneys FINDINGS: RIGHT KIDNEY: 10.3 x 3.8 x 3.5 cm (SAG x AP x TRV). The kidney is normal in size, contour, and echogenicity. Renal cortical thickness is normal. No calculi or focal parenchymal lesions. No hydronephrosis. LEFT KIDNEY: 10.6 x 3.8 x 3.3 cm (SAG x AP x TRV). The kidney is normal in size, contour, and echogenicity. Renal cortical thickness is normal. No calculi or focal parenchymal lesions. No hydronephrosis. US/US renal BI IMPRESSION: Unremarkable exam.
== END 2021-08-03 08:47 | disposition home or self-care (01) ==
LOC: HO.HMGCX 08:46
PROVIDERS: PCP Internal Medicine; Visit Provider Urology
DX: N20.0 Calculus of kidney (principal)
CPT/HCPCS: 76775

== ENCOUNTER 2021-09-03 08:10 | Outpatient (REF) | payer OTHER, SELFPAY ==
--- NOTE | ~2021-09-03 | CT_ITS ---
EXAMINATION: CT HEAD WITH/WITHOUT CONTRAST CLINICAL INFORMATION: Visual disturbances. COMPARISON: None TECHNIQUE: Contiguous axial imaging was performed from the skull base to vertex before and after the administration of 85 mL of Omnipaque [address] examination was performed using dose optimization techniques as appropriate, variously including the following: *Automated exposure control *Adjustment of mA and/or kV according to patient size (this includes techniques or standardized protocols for targeted exams where dose is matched to indication/reason for exam; i.e. extremities or head) *Use of iterative reconstruction technique DLP: 1256 mGy-cm FINDINGS: There is no evidence of acute intracranial hemorrhage or territorial infarction. No abnormal mass effect or midline shift is seen. Jalloh to white matter differentiation is well preserved. No extra-axial fluid collections are identified. There is no abnormal enhancement. The ventricles are normal in size. There is no abnormal attenuation within the brain parenchyma. No evidence of any abnormal enhancement following administration of contrast. The osseous structures and soft tissues are normal. The mastoid air cells and visualized portions of the paranasal sinuses are well aerated. CT/CT head/brain wo/w con IMPRESSION: No acute intracranial pathology.
[2021-09-03] MEDS: iohexoL 350 MG/ML 100 ML INFUS..BTL IV (09:04)
== END 2021-09-03 08:11 | disposition home or self-care (01) ==
LOC: HO.CT 08:10
PROVIDERS: PCP Internal Medicine; Visit Provider Nurse Practitioner Family
DX: R51.9 Headache, unspecified (principal); R26.81 Unsteadiness on feet; H53.8 Other visual disturbances
CPT/HCPCS: 70470; Q9967

== ENCOUNTER → 2021-09-25 13:38 | Outpatient (BNVA) | payer OTHER, SELFPAY | PROVIDERS: PCP Internal Medicine ==

== ENCOUNTER → 2022-01-04 13:40 | Outpatient (BNVA) | payer OTHER, SELFPAY | PROVIDERS: PCP Internal Medicine; Referring Provider Internal Medicine; Visit Provider Surgery | DX: Z85.3 Personal history of malignant neoplasm of breast (principal) | CPT/HCPCS: 99212 ==

== ENCOUNTER 2022-05-24 09:55 | Outpatient (REF) | payer OTHER, SELFPAY ==
--- NOTE | ~2022-05-24 | US_ITS ---
EXAMINATION: US RETROPERITONEAL LIMITED (RENAL ONLY) CLINICAL INFORMATION: Calculus of kidney. COMPARISON: US retroperitoneal limited (renal only) 08/03/2021 and 07/17/2020. TECHNIQUE: Real-time imaging of the kidneys. FINDINGS: RIGHT KIDNEY: 10.2 x 3.9 x 5.1 cm (SAG x AP x TRV). The kidney is normal in size, contour, and echogenicity. Renal cortical thickness is normal. No calculi or focal parenchymal lesions. No hydronephrosis. Incidentally noted right extrarenal pelvis. LEFT KIDNEY: 10.4 x 3.3 x 4.3 cm (SAG x AP x TRV). The kidney is normal in size, contour, and echogenicity. Renal cortical thickness is normal. No calculi or focal parenchymal lesions. No hydronephrosis. US/US renal BI IMPRESSION: No nephrolithiasis appreciated.
== END 2022-05-24 09:56 | disposition home or self-care (01) ==
LOC: HO.US 09:55
DX: N20.0 Calculus of kidney (principal)
CPT/HCPCS: 76775

== ENCOUNTER 2022-05-28 08:10 | Outpatient (REF) | payer OTHER, SELFPAY ==
[2022-05-28 10:06] LABS: Cholesterol 232 mg/dL; HDL Cholesterol 75 mg/dL; LDL Cholesterol Calculated 142 mg/dl; Triglycerides 79 mg/dL
== END 2022-05-28 08:11 | disposition home or self-care (01) ==
LOC: HO.LAB 08:10
PROVIDERS: PCP Internal Medicine; Visit Provider Internal Medicine
DX: Z00.00 Encounter for general adult medical examination without abnormal findings (principal)
CPT/HCPCS: 36415; 80061

== ENCOUNTER → 2022-07-07 12:30 | Outpatient (BNVA) | payer OTHER, SELFPAY | PROVIDERS: PCP Internal Medicine; Referring Provider Internal Medicine; Visit Provider Surgery | DX: Z85.3 Personal history of malignant neoplasm of breast (principal) | CPT/HCPCS: 99212 ==

== ENCOUNTER → 2022-08-16 11:40 | Outpatient (BNVA) | payer MEDICARE, MEDICAID, SELFPAY | PROVIDERS: PCP Internal Medicine; Visit Provider Advanced Practice Midwife | DX: Z01.419 Encounter for gynecological examination (general) (routine) without abnormal findings (principal); N95.0 Postmenopausal bleeding | CPT/HCPCS: 99212 ==

== ENCOUNTER → 2023-01-05 13:23 | Outpatient (BNVA) | payer MEDICARE, MEDICAID, SELFPAY | PROVIDERS: PCP Internal Medicine; Visit Provider Surgery | DX: Z85.3 Personal history of malignant neoplasm of breast (principal); Z80.3 Family history of malignant neoplasm of breast | CPT/HCPCS: 99212 ==

== ENCOUNTER 2023-06-24 12:47 | Outpatient (REF) | payer MEDICARE, OTHER, SELFPAY ==
--- NOTE | ~2023-06-24 | US_ITS ---
EXAMINATION: US RETROPERITONEAL LIMITED (RENAL ONLY) CLINICAL INFORMATION: Calculus of kidney. COMPARISON: Ultrasound renal 05/24/2022 and 08/03/2021. TECHNIQUE: Real-time imaging of the kidneys. FINDINGS: RIGHT KIDNEY: 10.0 x 3.8 x 4.7 cm (SAG x AP x TRV). The kidney is normal in size, contour, and echogenicity. Renal cortical thickness is normal. No calculi or focal parenchymal lesions. No hydronephrosis. LEFT KIDNEY: 10.8 x 3.4 x 3.9 cm (SAG x AP x TRV). The kidney is normal in size, contour, and echogenicity. Renal cortical thickness is normal. No calculi or focal parenchymal lesions. No hydronephrosis. US/US renal BI IMPRESSION: Unremarkable renal ultrasound..
== END 2023-06-24 12:48 | disposition home or self-care (01) ==
LOC: HO.US 12:47
PROVIDERS: PCP Internal Medicine; Visit Provider Nurse Practitioner Family
DX: N20.0 Calculus of kidney (principal)
CPT/HCPCS: 76775

== ENCOUNTER 2023-06-29 11:52 | Outpatient (AMB) | payer MEDICARE, MEDICAID, SELFPAY ==
[2023-06-29 11:53] VITALS: BP 123/59; PULSE 82; BMI 22.8
--- NOTE | 2023-06-29 11:53 | A.OFFVIS_ITS ---
Intake Vital Signs 06/29/23 11:53 Height 5 ft 3 in Weight 129 lb BMI 22.8 BP 123/59 L Blood Pressure Location Rt brachial Position Sitting Pulse 82 Intake Visit Reasons: Breast carcinoma, 6 month follow up Intake Note: This patient presents for a six month follow-up breast examination assessment. Patient c/o; reports right shoulder pain, limited ROM due to discomfort and pain, denies breast complaints at this time. 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 Accompanied by: Self / Same As Patient Allergies No Known Allergies Allergy (Verified 06/29/23 12:00) Medication List - Last Reconciled 06/29/23 by Ronny Kimble MD blood pressure monitor As directed gabapentin 100 mg PO BEDTIME 90 days ibuprofen 600 mg PO Q6H PRN meclizine 25 mg PO DAILY PRN multivitamin 1 tab PO DAILY omeprazole 40 mg PO DAILY pyridoxine (vitamin B6) 100 mg PO DAILY 90 days simethicone (Gas Relief (simethicone)) 180 mg PO BID PRN 7 days tamoxifen 20 mg PO DAILY zoledronic zeho-getxiqre-bofan 5 mg/100 mL (Reclast) 1 ea IV ONCE HPI Breast carcinoma, 6 month follow up HPI Details She is here for follow-up for history of right breast invasive ductal carcinoma last March,.? She had undergone bilatera mastectomy (prophylactic on the left, as patient's request) with sentinel node biopsy of the right breast at that time. She had a T1 N0 invasive ductal cancer. She says she has been doing well.? She continues to be on tamoxifen and is being followed by Dr. Sterling of Oncology. ?She is also being given Reclast because of osteoporosis. [facility] Medical History Abnormal mammogram of right breast Allergic urticaria Arthritis of both knees Breast cancer COVID-19 vaccine administered Family history of breast cancer GERD (gastroesophageal reflux disease) History of breast cancer History of right breast cancer Osteoporosis Polyarthralgia Renal calculi Right elbow pain Surgical History H/O skin graft H/O tubal ligation History of cholecystectomy Hx of colonoscopy S/P bilateral mastectomy Family History Father No problems noted. Mother Diabetes Hypertension Sister Cancer History of breast cancer Paternal Aunt History of breast cancer, Onset Age: 47 Social History Household Members: Family Housing: House Are you a primary wound care rn to a significant other at home: No Do you presently have visiting nurse or other home services: No Alcohol intake: former Patient Tobacco Use Status: Never used Tobacco e-Cigarette/Vaping Use: Never Used Second Hand Smoke Exposure: No service: No Current occupational status: unemployed Cognitive needs: No Hearing needs: No Vision needs: Yes Female Reproductive History Menstrual Age of Menarche: 13 Review of Systems Const Denies chills and Denies fever(s) Card Denies chest pain, Denies dyspnea and Denies dyspnea on exertion Resp Denies cough, Denies dyspnea and Denies dyspnea on exertion GI Denies hematochezia and Denies change in bowel habits Denies hematuria Musc Denies back pain and Denies limited range of motion Neuro Denies focal weakness and Denies convulsions Psych Denies depression and Denies mood swings Physical Exam Chest Other: Mastectomy sites both well healed, no palpable chest wall masses, no axillary lymphadenopathy Assessment & Plan Assessment & Plan (1) History of breast cancer: Code(s): Z85.3 - Personal history of malignant neoplasm of breast Plan: Physical exam does not reveal any palpable chest wall masses or axillary lymphadenopathy. She had an early stage cancer. She currently feels well. She is to continue to see Dr. Sterling she is on tamoxifen and Reclast. I will see her again in the office next year for surveillance. Coding Level of Care Code Est Pt Level 3 (56528) Diagnoses History of breast cancer Z85.3
== END 2023-06-29 12:17 | disposition home or self-care (01) ==
PROVIDERS: PCP Internal Medicine; Visit Provider Surgery
DX: Z85.3 Personal history of malignant neoplasm of breast (principal)
CPT/HCPCS: 99213

== ENCOUNTER → 2023-06-29 11:52 | Outpatient (BNVA) | payer MEDICARE, OTHER, SELFPAY | PROVIDERS: PCP Internal Medicine; Visit Provider Surgery | DX: Z85.3 Personal history of malignant neoplasm of breast (principal) | CPT/HCPCS: 99212 ==

== ENCOUNTER 2023-09-07 08:14 | Outpatient (REF) | payer MEDICARE, SELFPAY ==
--- NOTE | ~2023-09-07 | MM_ITS ---
EXAMINATION: BONE DENSITOMETRY CLINICAL INDICATION: Follow up osteoporosis. COMPARISON: This is the patient's baseline examination. TECHNIQUE: Using a [employer] DXA System (software version: 13.1) manufactured by [employer], dual-energy x-ray absorptiometry was performed of the lumbar spine and left hip. The images are of good technical quality. Summary results are attached. FINDINGS: LEFT FEMUR, NECK: BMD 0.652 g/cm2, Z-score -1.1, T-score -2.8, osteoporosis. LEFT FEMUR, TOTAL: BMD 0.707 g/cm2, Z-score -1.0, T-score -2.4, osteopenia. AP SPINE L1-L4: BMD 0.916 g/cm2, Z-score -0.4, T-score -2.2, osteopenia. IDENTIFIED RISK FACTORS: Menopause, osteoporosis, recurrent falls. HISTORY OF FRACTURE: None listed. MEDICATIONS: Multivitamin, ERT/SERMS. MM/XR DEXA axial skeleton IMPRESSION: 1. DIAGNOSIS: Osteoporosis based on the lowest T-score value of -2.8 in the femoral neck applying World Health Organization criteria. 2. 10-YEAR FRACTURE RISK PREDICTION, FRAX: According to the guidelines, FRAX calculation should only be performed on patients in the osteopenia bone density category. Therefore, FRAX was not performed on this patient. 3. Treatment Recommendations: NOF guidelines recommend consideration for treatment in postmenopausal women and men age 50 and older presenting with the following: -A hip or vertebral (clinical or morphometric) fracture. -T-score less than or equal to -2.5 at the femoral neck or spine after appropriate evaluation to exclude secondary causes. -Low bone mass at the hip or spine and a 10-year fracture probability by FRAX of greater than or equal to 3% for hip fracture or greater than or equal to 20% for major osteoporotic fracture based on the [place] adapted WHO algorithm. 4. Other Recommendations: All treatment decisions require clinical judgment and consideration of individual patient factors, including patient preferences, comorbidities, previous drug use, risk factors not captured in the FRAX model (e.g. frailty, falls, vitamin D deficiency, increased bone turnover, interval significant decline in bone density) and possible under or overestimation of fracture risk by FRAX. Additional medical evaluation for secondary cause of low bone mineral density may be appropriate. FUTURE SCAN RECOMMENDATION: People with diagnosed cases of osteoporosis or at high risk for fracture should have regular bone mineral density tests. For patients eligible for Medicare, routine testing is allowed once every 2 years. The testing frequency can be increased to one year for patients who have rapidly progressing disease, those who are receiving or discontinuing medical therapy to restore bone mass, or have additional risk factors.
== END 2023-09-07 08:15 | disposition home or self-care (01) ==
LOC: HO.MAMMO 08:14
PROVIDERS: PCP Internal Medicine; Visit Provider Internal Medicine Medical Oncology
DX: Z13.820 Encounter for screening for osteoporosis (principal); Z78.0 Asymptomatic menopausal state; Z85.3 Personal history of malignant neoplasm of breast
CPT/HCPCS: 77080

== ENCOUNTER 2025-03-07 12:44 | Outpatient (AMB) | payer MEDICARE, SELFPAY ==
--- NOTE | 2025-03-07 12:52 | MHC.OFFVIS ---
Vital Signs 03/07/25 13:01 Height 5 ft 3 in Weight 127 lb BMI 22.5 BP 125/58 L Blood Pressure Location Rt brachial Position Sitting Pulse 68 Intake Visit Reasons: Yearly Breast Exam Intake Note: Patient here for yearly breast examination assessment. Patient c/o: reports no concerns, mastectomy scar on chest completely healed. Hx: Bilateral total mastectomy with sentinel node biopsy of the right breast Dr. Sterling follow up 03-11-2025. 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 She had undergone bilatera mastectomy (prophylactic on the left, as patient's request) with sentinel node biopsy of the right breast at that time. She had a T1 N0 invasive ductal cancer. She continues to do well. She still takes tamoxifen. She is being followed by Dr. Sterling. She gets Reclast once a month. She denies significant complaints at this time. [facility] Medical History Family history of breast cancer History of breast cancer History of right breast cancer Osteoporosis Allergic urticaria COVID-19 vaccine administered Arthritis of both knees Breast cancer Abnormal mammogram of right breast Right elbow pain Renal calculi Polyarthralgia GERD (gastroesophageal reflux disease) Surgical History S/P bilateral mastectomy Hx of colonoscopy H/O skin graft H/O tubal ligation History of cholecystectomy Family History Father No problems noted. Mother Diabetes Hypertension Sister Cancer History of breast cancer Paternal Aunt History of breast cancer, Onset Age: 47 Social History Household Members: Family Housing: House Are you a primary post acute care nurse to a significant other at home: No Do you presently have visiting nurse or other home services: No Alcohol intake: former Patient Tobacco Use Status: Never used Tobacco e-Cigarette/Vaping Use: Never Used Second Hand Smoke Exposure: No service: No Current occupational status: unemployed Cognitive needs: No Hearing needs: No Vision needs: Yes Female Reproductive History Menstrual Age of Menarche: 13 Review of Systems Const Denies chills and Denies fever(s) Card Denies chest pain, Denies dyspnea and Denies dyspnea on exertion Resp Denies cough, Denies dyspnea and Denies dyspnea on exertion GI Denies hematochezia and Denies change in bowel habits Denies hematuria Musc Denies back pain and Denies limited range of motion Neuro Denies focal weakness and Denies convulsions Psych Denies depression and Denies mood swings Physical Exam Vital Signs: Last Vital Signs Pulse 68 03/07/25 13:01 BP 125/58 L 03/07/25 13:01 BMI result Body Mass Index 22.5 Const General: comfortable and no acute distress Chest Other: Both mastectomy sites well healed without any palpable mass on the chest wall, no axillary lymphadenopathy Resp Effort & Inspection: normal respiratory effort Cardio Rate: regular rate Assessment & Plan Assessment & Plan (1) History of right breast cancer: Code(s): Z85.3 - Personal history of malignant neoplasm of breast Category: Medical Plan: Status post bilateral mastectomy, prophylactic on the left. She continues to do very well. There were no palpable masses on the chest wall. There is no axillary lymphadenopathy. She continues to follow Dr. Sterling and I had advised her to continue doing so. I told her they will see her again within 1 year. Her was with her during the visit. Coding Level of Care Code Est Pt Level 3 (61829) Diagnoses History of right breast cancer Z85.3
[2025-03-07 13:01] VITALS: BP 125/58; PULSE 68; BMI 22.5
--- OUTSIDE RECORDS SUMMARY | 2025-03-07 13:23 | XMS_ITS | Clinical Summary ---
Author Organization [employer] [facility] ity Address [address] [place] [address] Care Team Providers Care Package Line Operator Name Role Phone Ray Hart MD Primary Care Provider [phone] Social History Tobacco Use Types Packs/Day Years Used Date Smoking Tobacco: Never Assessed Comments Unknown Sex and Gender Information Value Date Recorded Sex Assigned at Not on file Legal Sex Female 9:10 PM EST Gender Identity Not on file Sexual Orientation Not on file Plan of Treatment Health Maintenance Due Date Last Done Comments Breast Cancer Screening 1955 DTaP,Tdap,and Td Vaccines (1 - Tdap) 1976 Pneumococcal Vaccine: 50+ Ye ars (1 of 1 - PCV) 2007 Zoster Vaccines (1 of 2) 2007 Colorectal Cancer Screening: Colonoscopy 11/18/2023 Depression Screening 11/18/2023 Falls Risk Assessment 11/18/2023 Hepatitis C Screening 11/18/2023 Osteoporosis Screening (Bone Density Screening) 11/18/2023 Social Influencers of Health Screening 11/18/2023 COVID-19 Vaccine (1 - 2023-2 5 season) 2024 Influenza Vaccine (Season Ended) 2025 Cholesterol Screening (Lipid Panel) 05/17/2028 05/17/2023 RSV Immunization Adult Patie nts (1 - 1-dose 75+ series) 2032 HIB Vaccines Aged Out No longer eligi ble based on patient's age to complete this topic HPV Vaccines Aged Out No longer eligi ble based on patient's age to complete this topic Hepatitis A Vaccines Aged Out No long er eligible based on patient's age to complete this topic Hepatitis B Vaccines Aged Out No long er eligible based on patient's age to complete this topic IPV Vaccines Aged Out No longer eligi ble based on patient's age to complete this topic MMR Vaccines Aged Out No longer eligi ble based on patient's age to complete this topic Meningococcal ACWY Vaccine Aged Out N o longer eligible based on patient's age to complete this topic Meningococcal B Vaccine Aged Out No l onger eligible based on patient's age to complete this topic RSV Immunization Patients Un shon 20 months Aged Out No longer eligible b ased on patient's age to complete this topic Varicella Vaccines Aged Out No longer eligible based on patient's age to complete this topic Care Teams Package Line Operator Relationship Specialty Start Date End Date Ray Hart MD [address] [place] [id number] PCP - General 04/01/23
== END 2025-03-07 13:33 | disposition home or self-care (01) ==
LOC: HO.HGS 12:44
PROVIDERS: PCP Internal Medicine; Visit Provider Surgery
DX: Z85.3 Personal history of malignant neoplasm of breast (principal)
CPT/HCPCS: 99213

== ENCOUNTER → 2025-03-07 12:44 | Outpatient (BNVA) | payer MEDICARE, SELFPAY | PROVIDERS: PCP Internal Medicine; Visit Provider Surgery | DX: Z85.3 Personal history of malignant neoplasm of breast (principal) | CPT/HCPCS: 99212 ==

== ENCOUNTER 2025-09-10 14:01 | Outpatient (REF) | payer MEDICARE, SELFPAY ==
--- NOTE | ~2025-09-10 | MM_ITS ---
EXAMINATION: DXA BONE DENSITY AXIAL HISTORY: Osteoporosis TECHNIQUE: LetGive Dual energy absorptiometry (DEXA) of the lumbar spine, total left hip, and femoral neck was performed. COMPARISON: Comparison is made with the prior examination dated August 2023. FINDINGS: The bone mineral density of the lumbar spine is 0.996 g/cm2, corresponding to a T-score of -1.5, and a Z-score of 0.3. This is indicative of osteopenia. This represents a BMD change of 8.7% compared to the prior exam. This is statistically significant. The bone mineral density of the left total hip is 0.742 g/cm2, corresponding to a T-score of -2.1, and a Z-score of -0.6. This is indicative of osteopenia. This represents a BMD change of 5% compared to the prior exam. The bone mineral density of the left femoral neck is 0.78 g/cm2, corresponding to a T-score of -2.4, and a Z-score of -0.7. This is indicative of osteopenia. This represents a BMD change of 8.6% compared to the prior exam. This is statistically significant. FRACTURE RISK: The FRAX index suggests a ten year probability of major osteoporotic fracture of 7.5%, and of hip fracture 1.7%. MM/XR DEXA axial skeleton IMPRESSION: Based on bone mineral density, and according to World Health Organization (WHO) criteria, the diagnosis is consistent with osteopenia based on lowest T score of -2.4 in the left femoral neck. Bone density is improved compared to August 2023 exam. Treatment Recommendations: NOF guidelines recommend consideration for treatment in postmenopausal women and men age 50 and older presenting with the following: -A hip or vertebral (clinical or morphometric) fracture. -T-score less than or equal to -2.5 at the femoral neck or spine after appropriate evaluation to exclude secondary causes. -Low bone mass at the hip or spine and a 10-year fracture probability by FRAX of greater than or equal to 3% for hip fracture or greater than or equal to 20% for major osteoporotic fracture based on the [place] adapted WHO algorithm. Other Recommendations: All treatment decisions require clinical judgment and consideration of individual patient factors, including patient preferences, comorbidities, previous drug use, risk factors not captured in the FRAX model (e.g. frailty, falls, vitamin D deficiency, increased bone turnover, interval significant decline in bone density) and possible under or overestimation of fracture risk by FRAX. Additional medical evaluation for secondary cause of low bone mineral density may be appropriate. FUTURE SCAN RECOMMENDATION: People with diagnosed cases of osteoporosis or at high risk for fracture should have regular bone mineral density tests. For patients eligible for Medicare, routine testing is allowed once every 2 years. The testing frequency can be increased to one year for patients who have rapidly progressing disease, those who are receiving or discontinuing medical therapy to restore bone mass, or have additional risk factors. Statistically, 68% of repeat scans fall within 1 SD (+/- 0.010 g/cm2 for AP spine L1-L4) and 1 SD (+/- 0.012 g/cm2 for femur total) FRAX is a trademark of the [employer] [place] [facility] Metabolic Bone Disease, a World Health Organization (WHO) Collaborating Center. Electronically signed by: Lotus Barker MD 09/10/2025 03:59 PM [facility] [place]
--- OUTSIDE RECORDS SUMMARY | 2025-09-11 08:13 | XMS_ITS | Clinical Summary ---
Author Organization [facility] [address] [facility] Address [address] [place] [address] Phone Care Team Providers Care Fast Food Team Member Name Role Phone Ray Hart MD Primary Care Provider [phone] Social History Tobacco Use Types Packs/Day Years Used Date Smoking Tobacco: Never Assessed Comments Unknown Sex and Gender Information Value Date Recorded Sex Assigned at Female 06/18/2025 12:00 PM EDT Legal Sex Female 9:10 PM EST Gender Identity Female 06/18/2025 12:00 PM EDT Sexual Orientation Straight 06/18/2025 12 :00 PM EDT Plan of Treatment Upcoming Encounters Date Type Department Care Team (Late st Contact Info) Description 09/11/2025 1:30 PM EST Office Visit Internal Medicine - [facility] [address] [address] Nat Harman MD [address] [place] [address] Health Maintenance Due Date Last Done Comments Breast Cancer Screening 1955 Colorectal Cancer Screening: Colonoscopy 1957 DTaP,Tdap,and Td Vaccines (1 - Tdap) 1976 Pneumococcal Vaccine: 50+ Ye ars (1 of 1 - PCV) 2007 Zoster Vaccines (1 of 2) 2007 Falls Risk Assessment 11/18/2023 Hepatitis C Screening 11/18/2023 Osteoporosis Screening (Bone Density Screening) 11/18/2023 Social Influencers of Health Screening 11/18/2023 Depression Screening 10/24/2024 COVID-19 Vaccine ( - 2024-2 6 season) 2025 Influenza Vaccine (#1) 2025 Cholesterol Screening (Lipid Panel) 05/17/2028 05/17/2023 [...] on patient's age to complete this topic Insurance MEDICAID - [place] Care Teams Fast Food Team Member Relationship Specialty Start Date End Date Ray Hart MD [address] [place], [place] [phone] PCP - General 04/01/23
--- OUTSIDE RECORDS SUMMARY | 2025-09-11 08:14 | XMS_ITS | Patient Health Record ---
Author Organization [facility] Address [address] [place] [address] Care Team Providers Care Truer Pinion And Wheel Name Role Phone Sarai Altamirano Primary Care Provider Unavailab Ramy Garza [phone] Reason For Referral No Information Medications Medication SIG (Take, Route, Fr equency, Duration) Notes Start Date End Date Status Zantac 150 MG Tablet 1 tablet at bedtime Orally prn Active Immunizations Vaccine Route Administration Date Status Comme nts Influenza Unknown 05/01/2019 Refused Social History Tobacco Use: Social History Observation Description Date Details (start date - stop date) Never Smoker NA - NA Social History Drugs/Alcohol: Social Info Question Answer Notes Alcohol Screen Did you have a drink containing alcohol in the past year? Yes How often did you have a drink containing alcohol in the past year? Monthly or less (1 point) How many drinks did you have on a typical day when you were drinking in the past year? 1 or 2 drinks (0 point) How often did you have 6 or more drinks on one occasion in the past year? 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 Section Notes: Nonsmoker; no sig alcohol Problems Problem Type SNOMED Code ICD Code Onset Dates Problem Status W/U Status Risk Notes Problem Screening for malignant neoplasm of colon (153166225) Encounter for screening for malignant neoplasm of colon (Z12.11) Active confirmed Problem Irritable bowel syndrome (75648225) Irritable bowel syndrome without diarrhea (K58.9) Active confirmed Problem Intolerance to lactose (finding) (576702577) Lactose intolerance (E73.9) Active confirmed Problem Pre-procedure evaluation check (788455131) Pre-procedural examination (Z01.818) Active confirmed Problem Preoperative cardiovascular examination (396955334) Pre-procedural cardiovascular examination (Z01.810) Active confirmed Plan Of Treatment Future Test Test Name Order Date COLONOSCOPY 05/01/2019 Insurance Providers Payer Name Payer Address Payer Phone Subscriber Number Group Number Insured Name Patient Relationship to Insured Coverage Start Date Coverage End Date [facility] [address] [address] [place], [place] [id number] YAZMIN KAMARA Self - patient is the insured MEDICAID OF [facility] [address] [place] [address] [id number] YAZMIN KAMARA Self - patient is the insured Medical (General) History Medical History History ICD Code Denies [place],DM,CVA,Lung disease,renal dise ase Colonoscopy in 2007--no polyps, biopsies neg for microscopic coitis Neg. labs for celiac disease in 2006 Irritable Bowel Syndrome Surgical History Surgery Date(Month/Year) Skin graft on left middle finger Cholecystectomy Tubal ligation
--- OUTSIDE RECORDS SUMMARY | 2025-09-11 08:14 | XMS_ITS | Clinical Summary ---
Author Organization [facility] Address [address] [place] [address] Care Team Providers Care Mobile Crane Operator Name Role Phone Ray Hart MD Primary Care Provider [phone] Medications Medication Sig Dispensed Refills Start Date End Date Status ibuprofen 600 MG tablet Take 1 tablet (600 mg total) by mouth every 6 (six) hours as needed. 28 tablet 0 04/01/2023 Active gabapentin (NEURONTIN) 300 MG capsule Take 1 capsule (300 mg total) by mouth every night at bedtime. 30 capsule 0 04/01/2023 Active Social History Tobacco Use Types Packs/Day Years Used Date Smoking Tobacco: Never Assessed Sex and Gender Information Value Date Recorded Sex Assigned at Female 04/01/2023 11:22 AM EDT Gender Identity Not on file Sexual Orientation Not on file Job Start Date Occupation Industry Not on file Not on file Not on file Last Filed Vital Signs Vital Sign Reading Time Taken Comments Blood Pressure 149/64 04/01/2023 11:04 AM EDT Pulse 76 04/01/2023 11:04 AM EDT Temperature 36.9 C (98.5 F) 04/01/2023 11:05 AM EDT Respiratory Rate 18 04/01/2023 11:0 4 AM EDT Oxygen Saturation 98% 04/01/2023 11: 04 AM EDT Inhaled Oxygen Concentration - - Weight 60.2 kg (132 lb 11.5 oz) 023 11:04 AM EDT Height - - Body Mass Index - - Plan of Treatment Health Maintenance Due Date Last Done Comments Hepatitis C Screening 1957 COVID-19 Vaccine (#1) 02/18/1958 Depression Screening 1969 Preventative Health Evaluation 1975 DTap / Tdap / Td (1 - Tdap) 1976 Colon Cancer Screening (Colonoscopy) 2002 Breast Cancer Screening (Mammogram) 2007 Shingrix-Zoster Vaccine (1 of 2) 2007 Fall Risk Assessment 2022 Osteoporosis Screening (DEXA Scan) 2022 Pneumococcal Vaccine (1 of 1 - PCV) 2022 Influenza Vaccine (#1) 2025 RSV Adult > 60+ Yrs or Pregn ant (1 - 1-dose 75+ series) 2032 Hepatitis B Vaccines Aged Out No long er eligible based on patient's age to complete this topic RSV Ped < 20 months Aged Out No longe r eligible based on patient's age to complete this topic Care Teams Mobile Crane Operator Relationship Specialty Start Date End Date Ray Hart MD [address] [phone] PCP - General General Surgery 04/01/23
== END 2025-09-10 14:02 | disposition home or self-care (01) ==
LOC: HO.MAMMO 14:01
PROVIDERS: Visit Provider Internal Medicine Medical Oncology
DX: M81.0 Age-related osteoporosis without current pathological fracture (principal); M85.89 Other specified disorders of bone density and structure, multiple sites
CPT/HCPCS: 77080

== ENCOUNTER → 2025-09-10 14:30 | Outpatient (BNV) | payer MEDICARE, SELFPAY | PROVIDERS: Visit Provider Radiology Diagnostic Radiology | DX: E28.39 Other primary ovarian failure (principal) | CPT/HCPCS: 77080 ==